=== PATIENT | female | born 1980 | race Asian ===

== ENCOUNTER 2016-08-20 12:08 | Outpatient (CLI) | payer OTHER | END 2016-08-20 12:19 | disposition short-term general hospital (02) | LOC: AMB 12:08 | DX: S61.511A Laceration without foreign body of right wrist, initial encounter (principal); S61.411A Laceration without foreign body of right hand, initial encounter; W25.XXXA Contact with sharp glass, initial encounter; Y93.89 Activity, other specified; Y92.018 Other place in single-family (private) house as the place of occurrence of the external cause | CPT/HCPCS: A0425; A0427 ==

== ENCOUNTER 2021-02-25 14:00 | Emergency (ER) | payer OTHER ==
[~2021-02-25] VITALS: Ht 160 cm; Wt 59.0 kg
[2021-02-25 18:15] VITALS: BP 112/65; TEMP 98.5
== END 2021-02-25 18:15 | disposition home or self-care (01) ==
LOC: ED 14:00
DX: R50.9 Fever, unspecified (principal); U07.1 COVID-19
CPT/HCPCS: 87502; 87635; 87651; 99283; U0003

== ENCOUNTER 2022-01-03 15:25 | Emergency (ER) | payer OTHER ==
[~2022-01-03] VITALS: Ht 160 cm; Wt 53.2 kg
[2022-01-03 15:40] VITALS: BP 114/76; TEMP 98.2
== END 2022-01-03 17:15 | disposition home or self-care (01) ==
LOC: ED 15:25
DX: S29.012A Strain of muscle and tendon of back wall of thorax, initial encounter (principal); X50.9XXA Other and unspecified overexertion or strenuous movements or postures, initial encounter; Y92.89 Other specified places as the place of occurrence of the external cause
CPT/HCPCS: 81025; 99282; J1885